=== PATIENT | male | born 1995 | race Caucasian/White ===

== ENCOUNTER → 2016-10-31 | Outpatient (CLI) | payer BC ==
--- NOTE | 2016-10-31 12:41 | DIAGNOSTIC IMAGING REPORT ---
RIGHT KNEE 1 OR 2 VIEWS ROUTINE CLINICAL HISTORY: Right knee pain COMPARISON: None. DISCUSSION: No fractures or dislocations are visualized. There are no erosive or destructive changes. Joint space appears well-preserved. There is no radiographic evidence of joint effusion. IMPRESSION: Unremarkable conventional radiographic evaluation the right knee Electronically signed by: Efrain Spence M.D. 10/31/2016 12:39 PM Dictated Date/Time: 10/31/2016 12:39 PM
--- NOTE | 2016-10-31 12:43 | DIAGNOSTIC IMAGING REPORT ---
LEFT KNEE 1 OR 2 VIEWS ROUTINE CLINICAL HISTORY: M25.561 Bilateral knee [id number] pain COMPARISON: None. DISCUSSION: The bones and joint spaces appear intact. There is no evidence of fracture, dislocation or bony disease. There is no evidence for soft tissue swelling. IMPRESSION: Negative study. Electronically signed by: Kumar Mccrary M.D. 10/31/2016 12:42 PM Dictated Date/Time: 10/31/2016 12:42 PM
== END | disposition home or self-care (01) ==
LOC: C.RADPV 12:20
PROVIDERS: ATTEND Family Medicine
DX: M25.561 Pain in right knee (principal); M25.562 Pain in left knee

== ENCOUNTER 2017-10-11 12:18 | Emergency (ER) | payer BC ==
[~2017-10-11] VITALS: Ht 182.9 cm; Wt 77.7 kg
[2017-10-11 12:28] VITALS: TEMP 36.7; Ht 182.9 cm; Wt 77.7 kg
[2017-10-11] MEDS ORDERED: OXYCODONE/ACETAMINOPHEN 5-325 TAB PO ONE (12:45)
[2017-10-11] MEDS ORDERED: ONDANSETRON 4MG OD TAB PO ONE (12:45)
--- NOTE | 2017-10-11 13:18 | DIAGNOSTIC IMAGING REPORT ---
LUMBAR SPINE CT WITHOUT CONTRAST CLINICAL HISTORY: Acute onset back pain after bending over. COMPARISON STUDY: No previous studies for comparison. TECHNIQUE: Axial images of the lumbar spine were obtained without IV contrast. Sagittal and coronal reconstructions were viewed. FINDINGS: For purposes of numbering on this exam, the L5-S1 disc space is assigned to axial image 296 of [id number]. Alignment of the lumbar spine is anatomic. There is no fracture or suspicious lesion within the lumbar spine. The sacroiliac joints are intact. Paravertebral soft tissues are within normal limits by CT. No intracanalicular mass or fluid collection is identified although central canal is suboptimally assessed by CT. The neural foramen appear patent. There is a probable small central/left upper central disc protrusion at L5-S1 that results in mild narrowing of the central canal and lateral recesses. IMPRESSION: 1. No acute lumbar spine fracture or subluxation. 2. Probable small central/left paracentral disc protrusion at L5-S1 that results in mild narrowing of the central canal and lateral recesses. Electronically signed by: Roberto Barraza M.D. 10/11/2017 1:16 PM Dictated Date/Time: 10/11/2017 1:08 PM
[2017-10-11] MEDS ORDERED: OXYC-57 PO (13:49)
[2017-10-11] MEDS ORDERED: METH4PAK PO (13:49)
[2017-10-11 13:58] VITALS: BP 130/77; PULSE 93; O2SAT 98
--- NOTE | 2017-10-11 16:37 | EMERGENCY ROOM VISIT NOTE ---
ED Visit Note First contact with patient: 12:32 Chief Complaint: Lower back pain. History of Present Illness: Mr. Escalante is a 22-year-old white male who ambulates into the ED accompanied by female friend complaining of severe lumbar back pain. Historically patient denies any previous history of back pain, surgeries or injuries. Patient reports less than 1 hour ago patient awoke from sleep and was bending over to get close out of the drawer and had an acute onset of severe lumbar back pain. Since that time the pain has been constant. He places such discomfort at the L4-L5 area. He rates his discomfort 9/10. His pain is radiating into the bilateral buttocks. His pain worsens with all movement and palpation of the lumbar spine. He has not identified any alleviating factors related to the pain. He has not taken any medication for pain prior to arrival at the hospital. He denies any recent direct or repetitive trauma. He denies any associated symptoms including fevers, chills, sweats, skin eruptions, skin color changes, abdominal pain, flank pain, urinary symptoms, hematuria, nausea, vomiting, diarrhea, constipation, rectal bleeding, black/ tarry stools, genital paresthesias, bowel and bladder dysfunction, lower extremity weakness/numbness/tingling. Review of Systems: As noted above in history of present illness. All body systems were reviewed and found to be negative as noted above. Past Medical History: Status post tonsillectomy, adenoidectomy. Current Medications: Patient denies. Allergies to Medications: Patient denies. Social History: Patient is not employed; he lives with his girlfriend feels safe in his home environment; he denies tobacco and alcohol use. Physical Examination: Vital Signs: Date Time Temp Pulse Resp B/P (MAP) Pulse Ox O2 Delivery O2 Flow Rate FiO2 10/11/17 13:58 93 18 130/77 98 10/11/17 12:28 36.7 98 18 141/84 98 Room Air GENERAL: 22-year-old male in severe distress due to pain, nontoxic-appearing, afebrile and hemodynamically stable. NEUROLOGICAL: Awake, alert and oriented to person, place and time. Answering questions appropriately and following commands. Normal gait. Good hand eye coordination. No focal motor or sensory deficits. SKIN: Warm, dry and pink. No soft tissue eruptions or trauma noted. HEENT: Atraumatic and normocephalic. BACK: No tenderness over the bony cervical and thoracic spine. Parous possible tenderness or spasm in the cervical or thoracic areas. No CVA tenderness. Severe tenderness over the L4 through S1 bony spine. No bony deformity, bony crepitus, step-offs, swelling or ecchymosis. Decreased range of motion in all movements due to pain. Negative straight leg raise test. THORAX: Lungs sounds are clear to auscultation and equal bilaterally with symmetrical chest wall. ABDOMEN: Flat, soft and nontender. Positive bowel sounds in all quadrants. No guarding, rigidity or organomegaly. LOWER EXTREMITIES: No gross bony deformity. No shortening or malrotation. No tenderness in the hips, thighs, knees, ankles and lower legs. 2+ patellar and Achilles deep tendon reflexes intact and equal bilaterally. He was able to distinguish light sensations to all dermatomes of the legs and the feet. Throughout the extremity the skin was warm and pink and capillary refill is brisk. No calf tenderness or cords. ED Course: Patient is assessed as noted above. Patient's medication list was reviewed. Patient was given 5 mg of Percocet 5/325 orally and 4 mg of Zofran ODT for his symptoms. Lumbar Spine CT: Was reviewed by myself and read by the radiologist showing no acute fractures or subluxations. Probable small central left paracentral disc protrusion at the L5-S1 resulting in mild narrowing of the central canal and lateral recess. Patient was reassessed multiple times during his stay in the emergency department. Patient was educated about today's findings and instructed on his treatment plan ; he verbalizes understanding and agreement with this plan. Clinical Impression: Acute lumbar back pain. Decision-Making: Initially my differential diagnosis I considered kidney stone, muscle spasm, herniated disc, pancreatitis, and other causes. Disposition: Patient discharged home in stable condition accompanied by his girlfriend; prior to departure he was reassessed and subjectively reported he was feeling much better and rated his discomfort 5/10. Plan: Patient was placed on a sliding pain medication scale of ibuprofen, acetaminophen set; his name was checked on state database and no red flags were noted. He was given appropriate narcotic precautions. Patient was prescribed a Medrol Dosepak instructed on its use. Other comfort measures including appropriate lifting and moving techniques and ice or heat on his back were discussed. Patient was encouraged to follow-up with his PCP for recheck early next week. Patient was encouraged return the ED for worsening pain, fevers, abdominal pain , lower extremity weakness/numbness/tingling, genital paresthesias, bowel and bladder dysfunction or any new/concerning symptoms.
== END 2017-10-11 13:59 | disposition home or self-care (01) ==
LOC: C.EDB 12:19 → C.EDD 13:59
DX: M54.5 Low back pain (principal)

== ENCOUNTER 2017-12-17 17:25 | Emergency (ER) | payer OTHER ==
[~2017-12-17] VITALS: Ht 182.9 cm; Wt 78.0 kg
[~2017-12-17 17:25] MED LIST: OXYC-57 PO
[2017-12-17 17:30] VITALS: TEMP 36.9; Ht 182.9 cm; Wt 78.0 kg
[2017-12-17] MEDS ORDERED: CYCLOBENZAPRINE HCL 5 MG TAB PO STA (17:39)
[2017-12-17] MEDS ORDERED: KETOROLAC TROMETHAMINE 60 MG/2 ML VIAL IM STA (17:39)
--- NOTE | 2017-12-17 18:11 | DIAGNOSTIC IMAGING REPORT ---
L-SPINE MIN 4 VIEWS ROUTINE CLINICAL HISTORY: 22 years-old Male presenting with Low back pain, R low back s/p forward flexion. TECHNIQUE: Frontal, bilateral oblique, lateral, and coned in lateral views of lumbar spine were obtained. COMPARISON: CT from 10/11/2017. FINDINGS: No scoliosis. Slight straightening of normal lumbar lordosis likely positional. Vertebral bodies are normal height and alignment. Intervertebral disc spaces preserved. No degenerative change. No compression deformity or subluxation. No radiographic evidence of osseous neural foraminal narrowing. No pars defect. Sacroiliac joints congruent. Nonobstructive bowel gas pattern. No gross evidence of nephrolithiasis. IMPRESSION: Normal radiographic evaluation of the lumbar spine. Electronically signed by: Himanshu Barajas M.D. 12/17/2017 6:09 PM Dictated Date/Time: 12/17/2017 6:08 PM
[2017-12-17] MEDS ORDERED: ONDANSETRON 4MG OD TAB PO STA (19:31)
[2017-12-17] MEDS ORDERED: OXYCODONE/ACETAMINOPHEN 5-325 TAB PO STA (19:31)
[2017-12-17] MEDS ORDERED: OXYCODONE IR HOME PACK PO STA (20:20)
[2017-12-17] MEDS ORDERED: FLEXERIL HOME PACK 10 MG VIAL PO STA (20:20)
[2017-12-17] MEDS ORDERED: OXYC1TAB3 PO (20:22)
[2017-12-17] MEDS ORDERED: CYCL5TAB PO (20:22)
--- NOTE | 2017-12-17 20:23 | EMERGENCY ROOM VISIT NOTE ---
History First contact with patient: 17:33 Chief Complaint: BACK PAIN Stated Complaint: BACK PAIN History of Present Illness The patient is a 22 year old male who presents to the Emergency Room via private vehicle accompanied by female with complaints of "back pain". The patient states that he has a history of back pain which prompted his visit here back in September. He states that he was doing well since then however today when he bent down to take his shoes off after work he developed severe right-sided low back pain which caused him to fall to the ground. It is worse with movement. He rates the pain as an 8/10. He denies any radiation of the pain. No leg weakness, numbness tingling the genital region, no bowel or bladder incontinence. No fevers or chills. No abdominal pain. He is able to ambulate. He denies taking anything thus far for the pain. He states when he was here before he had a CT scan which showed a disc bulge. He has been trying to follow with [facility] for spine. Review of Systems A complete 6-point Review of Systems was discussed with the patient, with pertinent positives and negatives listed in the History of Present Illness. All remaining Review of Systems questions can be considered negative unless otherwise specified. Past Medical/Surgical History Back injury Family History Noncontributory Social History Smoking Status: Never Smoker Patient is employed and lives locally. Current/Historical Medications Scheduled Cyclobenzaprine Hcl (Flexeril), 5 MG PO TID Scheduled PRN Oxycodone Ir (Roxicodone Ir), 1-2 TAB PO Q4H PRN for Pain Physical Exam Vital Signs Date Time Temp Pulse Resp B/P (MAP) Pulse Ox O2 Delivery O2 Flow Rate FiO2 12/17/17 20:32 65 20 135/89 97 12/17/17 17:30 36.9 91 18 133/84 99 Room Air Physical Exam VITAL SIGNS - Vital signs and nursing notes were reviewed. Stable. Afebrile. GENERAL -22-year-old male appearing his stated age who is in no acute distress. Communicates well with provider and answers questions appropriately. SKIN - Without rashes. No meningeal or petechial rash. HEAD - NC/AT. EYES - Sclera anicteric. EARS - No deformities of external structures noted on gross examination bilaterally. NOSE - Midline and without cyanosis. No epistaxis or purulent drainage noted. MOUTH/OROPHARYNX - Without perioral cyanosis. NECK - Neck with FROM. Supple to palpation. LUNGS - Chest wall symmetric without accessory muscle use, intercostals retractions, or central cyanosis. Normal vesicular breath sounds CTA B/L. No wheezes, rales, or rhonchi appreciated. CARDIAC - RRR with S1/S2. No murmur, rubs, or gallops appreciated. ABDOMEN - Abdominal contour normal without pulsations or visible masses. BS normoactive all four quadrants. No tenderness, palpable masses, hepatosplenomegaly, or ascites noted. EXTREMITIES - No clubbing or peripheral cyanosis. No pretibial edema present. +5 /5 strength noted in UE/LE bilaterally. MUSCULOSKELETAL: Reproducible lumbar paraspinous musculature tenderness and pain in the posterior paraspinous musculature region. NEUROLOGIC - Cranial nerves II through XII grossly intact. Sensory intact to light touch throughout. Patellar reflexes +2/4. PSYCH - A&O, and cooperates fully with examiner. Pt is very pleasant and interacts well with examiner. Medical Decision & Procedures ER Provider Diagnostic Interpretation: L-SPINE MIN 4 VIEWS ROUTINE CLINICAL HISTORY: 22 years-old Male presenting with Low back pain, R low back s/p forward flexion. TECHNIQUE: Frontal, bilateral oblique, lateral, and coned in lateral views of lumbar spine were obtained. COMPARISON: CT from 10/11/2017. FINDINGS: No scoliosis. Slight straightening of normal lumbar lordosis likely positional. Vertebral bodies are normal height and alignment. Intervertebral disc spaces preserved. No degenerative change. No compression deformity or subluxation. No radiographic evidence of osseous neural foraminal narrowing. No pars defect. Sacroiliac joints congruent. Nonobstructive bowel gas pattern. No gross evidence of nephrolithiasis. IMPRESSION: Normal radiographic evaluation of the lumbar spine. Electronically signed by: Himanshu Barajas M.D. 12/17/2017 6:09 PM Dictated Date/Time: 12/17/2017 6:08 PM Medications Administered Medications (Trade) Dose Ordered Sig/Dwain Route Start Time Stop Time Status Last Admin Dose Admin Ketorolac Tromethamine (Toradol Inj) 60 mg NOW STAT IM 12/17/17 17:39 12/17/17 17:40 DC 12/17/17 18:12 60 MG Cyclobenzaprine HCl (Flexeril Tab) 10 mg NOW STAT PO 12/17/17 17:39 12/17/17 17:40 DC 12/17/17 18:12 10 MG Oxycodone/ Acetaminophen (Percocet 5-325mg Tab) 1 tab NOW STAT PO 12/17/17 19:31 12/17/17 19:33 DC 12/17/17 19:46 1 TAB Ondansetron HCl (Zofran Odt) 4 mg NOW STAT PO 12/17/17 19:31 12/17/17 19:33 DC 12/17/17 19:47 4 MG Oxycodone HCl (Roxicodone Immediate Rel 5MG Home Pack) 1 homepack UD STAT PO 12/17/17 20:20 12/17/17 20:22 DC 12/17/17 20:20 1 HOMEPACK Cyclobenzaprine HCl (FLEXERIL 10MG Home Pack) 1 homepack UD STAT PO 12/17/17 20:20 12/17/17 20:22 DC 12/17/17 20:20 1 HOMEPACK Medical Decision Patient was seen and evaluated as above in room D7. Review was performed of nursing notes and vital signs. After obtaining a thorough history and physical examination the above work up was performed. He presents to us today with low back pain. It is reproducible on exam in the paraspinous muscular of the lumbar spine. He is nontoxic on exam. No abdominal pain. No evidence of cauda equina syndrome. I suspect lumbar strain. X-ray was obtained and compared to previous CAT scan was negative. He appears stable with outpatient management and was treated here with Toradol, Flexeril, Zofran and Percocet. Pain was starting to subside. I do not believe that emergent MRI is necessary. No neurologic deficit. He is to follow with a solar project coordination specialist and his family doctor. He will be prescribed Flexeril and oxycodone. He was thoroughly educated upon risks of this medication. He will not be driving home this evening. He was educated upon worrisome symptoms which to return. The patient was educated upon management, had questions answered prior to discharge , and was discharged home in good condition. In the evaluation and treatment of this patient the following differential diagnoses were entertained: Lumbar sprain, strain, fracture, dislocation, acute abdominal injury, among others. Impression Primary Impression: Strain of lumbar region Departure Information Dispostion Home / Self-Care Condition GOOD Prescriptions Oxycodone Ir (Roxicodone Ir) 5 Mg Tab 1-2 TAB PO Q4H Y for Pain, #15 TAB For Initial Treatment Prov: Romel Tay PA-C 12/17/17 Cyclobenzaprine Hcl (FLEXERIL) 5 Mg Tab 5 MG PO TID for 5 Days, #15 TAB PRN Prov: Romel Tay PA-C 12/17/17 Referrals Annelise Siegel M.D. (PCP) Gustavo Harrison, DO Patient Instructions [facility] Additional Instructions You have been treated in the Emergency Department for Back Pain. You have received pain medicine in the emergency department which impairs your ability to operate a vehicle. It is illegal for you to drive after receiving these medicines. You have been prescribed OXY IR to be used for pain control. This is a narcotic medication. You cannot drive or consume alcohol while on this medicine. This medicine should only be used for pain that cannot be controlled with over-the- counter pain medicines. You have been prescribed Flexeril (cyclobenzaprine) 1-2 tabs orally, three times per day. Do NOT exceed 30 mg (6 tabs) per day. Take your first dose at bedtime as it can make you drowsy. Always take all medications as prescribed. For pain control, you can use the following [id number] medicines (if >12 yo): - Regular strength (325mg/tab) Tylenol (acetaminophen) 2 tabs every 4-6 hours as needed. Do not exceed 12 tablets in a 24 hour period. Avoid taking more than 3 grams (3000 mg) of Tylenol per day. This includes any other sources of acetaminophen you may take on a regular basis. - Regular strength (200 mg/tab) Advil (ibuprofen) 1-2 tabs every 4-6 hours as needed. Do not exceed a dose of 3200 mg per day. If this is an acute injury, ice can be applied to the area of pain for the first 3 days to help decrease pain and inflammation. After the first 3 days, a heating pad can be used over the area for continued soothing relief. You should schedule a follow-up appointment in 2-3 days with your Primary Care Provider for further evaluation and treatment of your back pain. Return to the Emergency Department if your current symptoms worsen despite treatment course outlined above, or if you develop any of the following symptoms : intractable pain despite aforementioned treatment course, loss of control of your bowel or bladder, numbness or tingling in your groin, or development of a fever.
[2017-12-17 20:32] VITALS: BP 135/89; PULSE 65; O2SAT 97
== END 2017-12-17 20:33 | disposition home or self-care (01) ==
LOC: C.EDB 17:26 → C.EDD 20:33
DX: S39.012A Strain of muscle, fascia and tendon of lower back, initial encounter (principal); X50.9XXA Other and unspecified overexertion or strenuous movements or postures, initial encounter; W18.30XA Fall on same level, unspecified, initial encounter